=== PATIENT | female | born 1940 | race Caucasian/White ===

== ENCOUNTER 2021-10-08 07:39 | Day surgery (SDC) | payer OTHER, MEDICARE ==
[2021-10-04 16:03] VITALS: BMI 20.7
[2021-10-08] MEDS ORDERED: PROPOFOL 20 ML ONE ×4 (07:59)
[2021-10-08] MEDS ORDERED: LIDOCAINE HCL/PF 2% SDV 5ML VIAL ONE (07:59)
[2021-10-08 10:12] VITALS: TEMP 98.1
[2021-10-08 10:42] VITALS: BP 123/58; PULSE 68
== END 2021-10-08 10:55 | disposition home or self-care (01) ==
LOC: FASU-ENDO 07:39
PROVIDERS: ATTEND Internal Medicine Gastroenterology
PROC: 0DBL8ZX Excision of Transverse Colon, Via Natural or Artificial Opening Endoscopic, Diagnostic (ICD-10-PCS; 2021-10-08)
PROC: 0DBN8ZX Excision of Sigmoid Colon, Via Natural or Artificial Opening Endoscopic, Diagnostic (ICD-10-PCS; 2021-10-08)
PROC: 0DBP8ZX Excision of Rectum, Via Natural or Artificial Opening Endoscopic, Diagnostic (ICD-10-PCS; 2021-10-08)
PROC: 0DBM8ZX Excision of Descending Colon, Via Natural or Artificial Opening Endoscopic, Diagnostic (ICD-10-PCS; 2021-10-08)
PROC: 0DBH8ZX Excision of Cecum, Via Natural or Artificial Opening Endoscopic, Diagnostic (ICD-10-PCS; 2021-10-08)
PROC: 0DBK8ZX Excision of Ascending Colon, Via Natural or Artificial Opening Endoscopic, Diagnostic (ICD-10-PCS; principal; 2021-10-08 09:27)
DX: K52.89 Other specified noninfective gastroenteritis and colitis (principal); K64.0 First degree hemorrhoids; Z87.19 Personal history of other diseases of the digestive system; K64.8 Other hemorrhoids
CPT/HCPCS: 82962; 88305-TC

== ENCOUNTER 2024-06-04 08:21 | Day surgery (SDC) | payer OTHER, MEDICARE ==
[2024-05-30 12:46] VITALS: BMI 21.4
[2024-06-04 09:05] VITALS: RESP 18
[2024-06-04 10:39] VITALS: PULSE 76; TEMP 97.4
[2024-06-04 11:15] VITALS: BP 123/54
== END 2024-06-04 11:11 | disposition home or self-care (01) ==
LOC: FASU-ENDO 08:21
PROVIDERS: ATTEND Internal Medicine Gastroenterology
PROC: 0DB98ZX Excision of Duodenum, Via Natural or Artificial Opening Endoscopic, Diagnostic (ICD-10-PCS; 2024-06-04)
PROC: 0DB78ZX Excision of Stomach, Pylorus, Via Natural or Artificial Opening Endoscopic, Diagnostic (ICD-10-PCS; 2024-06-04)
PROC: 0DB48ZX Excision of Esophagogastric Junction, Via Natural or Artificial Opening Endoscopic, Diagnostic (ICD-10-PCS; 2024-06-04)
PROC: 0DJD8ZZ Inspection of Lower Intestinal Tract, Via Natural or Artificial Opening Endoscopic (ICD-10-PCS; principal; 2024-06-04 09:37)
DX: Z12.11 Encounter for screening for malignant neoplasm of colon (principal); K64.1 Second degree hemorrhoids; K64.8 Other hemorrhoids; K20.80 Other esophagitis without bleeding; K22.70 Barrett's esophagus without dysplasia; R93.3 Abnormal findings on diagnostic imaging of other parts of digestive tract; Z87.19 Personal history of other diseases of the digestive system
CPT/HCPCS: 82962; 88305-TC; 88342-TC